=== PATIENT | female | born 1965 | race Two or more races ===

== ENCOUNTER 2020-05-27 09:34 | Outpatient (CLI) | payer OTHER | END 2020-05-27 09:38 | disposition home or self-care (01) | LOC: MRI 09:34 | PROVIDERS: ATTEND Surgery | DX: D25.1 Intramural leiomyoma of uterus (principal); R19.4 Change in bowel habit; K61.0 Anal abscess | CPT/HCPCS: 72197 ==

== ENCOUNTER 2020-06-11 07:11 | Day surgery (SDC) | payer OTHER | END 2020-06-11 12:45 | disposition home or self-care (01) | LOC: AMB-ENDOS 07:11 | PROVIDERS: ATTEND Surgery | DX: D12.3 Benign neoplasm of transverse colon (principal); Z20.822 Contact with and (suspected) exposure to COVID-19 ==